=== PATIENT | male | born 1960 | race Caucasian/White ===

== ENCOUNTER 2023-11-18 13:11 | Emergency (ER) | payer BC, SELFPAY ==
[2023-11-18 13:12] VITALS: BP 156/102
[2023-11-18 13:27] LABS: % Basophils 0.4 % (0-2); % Eosinophils 1.9 % (0-6); % Immature Granulocytes 0.3 % (0-0.5); % Lymphocytes 23.8 % (20.5-51.1); % Monocytes 9.7 % (1.7-9.3); % Neutrophils 63.9 % (42.2-75.2); Absolute Basophils 0.1 10^3/uL (0-0.2); Absolute Eosinophils 0.2 10^3/uL (0-0.7); Absolute Lymphocytes 2.8 10^3/uL (1.2-3.4); Absolute Monocytes 1.1 10^3/uL (0.1-0.6); Absolute Neutrophils 7.4 10^3/uL (1.4-6.5); Hematocrit 44.5 % (39.0-52.0); Hemoglobin 15.2 g/dL (13.0-18.0); Mean Corp Hgb Conc. 34.2 g/dL (33.0-37.0); Mean Corpuscular Hgb 32.3 pg (27.0-31.0); Mean Corpuscular Volume 94.7 fL (80.0-94.0); Mean Platelet Volume 9.3 fL (7.4-10.4); Nucleated Red Blood Cells % 0 % (-); Platelet Count 306 10^3/uL (130-400); Red Cell Dist. Width 13.9 % (11.5-14.5); White Blood Cell Count 11.6 10^3/uL (4.8-10.8)
[2023-11-18 13:44] LABS: ALT (SGPT) 28 U/L (0-50); AST (SGOT) 27 U/L (17-59); Albumin 4.7 g/dl (3.5-5.0); Alkaline Phosphatase 81 U/L (38-126); Blood Urea Nitrogen 15 mg/dl (9-20); Calcium 9.6 mg/dl (8.4-10.2); Carbon Dioxide 26 mmol/L (22-30); Chloride 104 mmol/L (98-107); Glucose 103 mg/dl (70-99); Lipase 271 U/L (23-300); Potassium 4.4 mmol/L (3.5-5.1); Sodium 138 mmol/L (135-145); Total Bilirubin 1.3 mg/dl (0.2-1.3); Total Protein 7.7 g/dl (6.3-8.2); eGFR > 60.00
--- NOTE | 2023-11-18 14:26 | ED.GENMED ---
History of Present Illness
General
Chief Complaint: Abdominal Pain
Source: patient
Exam Limitations: none
Time Seen by Provider: 11/18/23 14:16
History of Present Illness
History of Present Illness:
63-year-old male presents complaining of onset of left lower quadrant pain starting this morning. She is constant sharp in nature without radiation to the flank. No associated urinary symptoms. No fever or vomiting. He has a remote history of
diverticulitis and this feels somewhat similar. No other at this time. He has a history of hypertension hyperlipidemia
Phy Exam
Physical Exam
Physical Exam:
General: Well-appearing male no acute respiratory distress
HEENT: Normocephalic atraumatic neck is supple
Heart: Regular rate and rhythm no murmurs
Lungs: Clear no wheeze or rales
Abdomen: Soft tender to the left lower quadrant no guarding rebound normal bowel sounds nondistended
Extremities: No cyanosis or edema
Skin: Warm no rash
Course
Orders/Labs/Results
Orders:
Orders
11/18/23 13:18
Complete Blood Count/With Diff Urgent
Comprehensive Metabolic Panel Urgent
Lipase Urgent
11/18/23 14:26
CT Abd/pelvis W Iv Cont Urgent
Comment:
Reason For Exam: llq pain
11/18/23 15:14
Ketorolac [Toradol] 15 mg IV NOW STA
Abnormal Lab Results
11/18/23
13:18
WBC 11.6 H 10^3/uL
(4.8-10.8)
MCV 94.7 H fL
(80.0-94.0)
MCH 32.3 H pg
(27.0-31.0)
Absolute Neuts (auto) 7.4 H 10^3/uL
(1.4-6.5)
Absolute Monos (auto) 1.1 H 10^3/uL
(0.1-0.6)
Monocytes % 9.7 H %
(1.7-9.3)
Glucose 103 H mg/dl
(70-99)
11/18/23 13:18
11/18/23 13:18
Vital Signs
Initial and Last Documented VS:
Initial Vital Signs
Temp Pulse Resp BP Pulse Ox
98.4 F 63 16 156/102 99
11/18/23 13:12 11/18/23 13:12 11/18/23 13:12 11/18/23 13:12 11/18/23 13:12
Last Documented Vital Signs
Temp Pulse Resp BP Pulse Ox
98.4 F 63 16 156/102 99
11/18/23 13:12 11/18/23 13:12 11/18/23 13:12 11/18/23 13:12 11/18/23 13:12
MDM/Problems Addressed
Differential Diagnosis Includes:
Left lower abdominal pain. Consider diverticulitis versus abscess versus renal colic versus constipation
Labs reviewed demonstrate slightly elevated white blood cell count 11.6. Will check CT scan with IV contrast. Patient offered medicine for pain however at this point he declined
*Critical Care Note
Total Time (30-74mins, 75-104mins- exclusive of procedures): Not Applicable
Update Note
Update Note:
CT demonstrates acute diverticulitis without complication. He also suggests a mass on the adrenal gland and a cyst on the right kidney. (Of the report of the CAT scan was given to the patient further review and follow-up with family doctor.
Diverticulitis to be treated with Augmentin and clear liquids. Stable for discharge
ED Attending Note
-
Portions of this chart may have been created with voice recognition software.� Occasional wrong word or��sound alike� substitutions may have occurred due to the inherent limitations of voice recognition software.
Discharge Plan
Departure
Patient Disposition: Home (Routine Discharge)
Date of Disposition: 11/18/23
Time of Disposition: 17:50
Patient with high blood pressure during this ER visit?: No
Discharge Problem:
Diverticulitis
Instructions: Diverticulitis (DC)
Prescriptions:
New
amoxicillin-pot clavulanate 875-125 mg tablet
1 tab PO BID Qty: 20 0RF
Referrals:
Chayito Irizarry CRNP [Family Provider] -
Activity Restrictions/Additional Instructions:
Drink plenty clear liquids. Use Augmentin as directed. Please return here if worse otherwise follow-up with your family doctor
Interventions
Interventions:
*Risk Screen - Suicide Last Done: 11/18/23 14:45
*General Assessment Last Done: 11/18/23 13:12
*Neglect/Abuse Screening Last Done: 11/18/23 14:45
ED- Fall Risk Assessment Last Done: 11/18/23 14:45
*ED COVID-19 Vaccine History Last Done: 11/18/23 13:12
LD-Pepbkb-Gjjbdsymat Assessment Last Done: 11/18/23 14:50
Discharge Date and Time
Print Language: MARTINIQUAIS
[2023-11-18 14:45] VITALS: BMI 29.0
[2023-11-18] MEDS: TORADOL 15 MG IV (15:15)
[2023-11-18 18:14] VITALS: BP 148/92
== END 2023-11-18 18:15 | disposition home or self-care (01) ==
LOC: EMR 13:11
PROVIDERS: Emergency Medicine; EMERGENCY PHYSICIAN Emergency Medicine; FAMILY PHYSICIAN Nurse Practitioner
DX: R10.32 Left lower quadrant pain (principal); E78.00 Pure hypercholesterolemia, unspecified; I10 Essential (primary) hypertension; K57.92 Diverticulitis of intestine, part unspecified, without perforation or abscess without bleeding
CPT/HCPCS: 99284; 96374; 74177; 80053; 83690; 85025; Q9967

== ENCOUNTER → 2024-02-01 16:11 | Outpatient (REF) | payer BC, SELFPAY | LOC: RAD 16:11 | PROVIDERS: ATTENDING PHYSICIAN Urology; FAMILY PHYSICIAN Nurse Practitioner | DX: N52.9 Male erectile dysfunction, unspecified (principal); N50.89 Other specified disorders of the male genital organs | CPT/HCPCS: 76870; 93976 ==

== ENCOUNTER 2025-01-06 12:40 | Emergency (ER) | payer OTHER, SELFPAY ==
[2025-01-06] VITALS (10 sets, daily range): BP systolic 98–133; BP diastolic 60–88; BMI 27.3
[2025-01-06 12:57] LABS: Hematocrit 43.5 % (39.0-52.0); Hemoglobin 14.7 g/dL (13.0-18.0); Mean Corp Hgb Conc. 33.8 g/dL (33.0-37.0); Mean Corpuscular Volume 95.2 fL (80.0-94.0); Nucleated Red Blood Cells % 0 % (-); Platelet Count 248 10^3/uL (130-400); Red Cell Dist. Width 14.0 % (11.5-14.5)
[2025-01-06 13:26] LABS: ALT (SGPT) 24 U/L (0-50); AST (SGOT) 27 U/L (17-59); Albumin 4.8 g/dl (3.5-5.0); Alkaline Phosphatase 70 U/L (38-126); Blood Urea Nitrogen 20 mg/dl (9-20); Calcium 9.3 mg/dl (8.4-10.2); Carbon Dioxide 27 mmol/L (22-30); Chloride 105 mmol/L (98-107); Estimated Creatinine Clearance 70 ml/min; Glucose 136 mg/dl (70-99); Potassium 4.2 mmol/L (3.5-5.1); Sodium 139 mmol/L (135-145); Total Protein 7.4 g/dl (6.3-8.2); eGFR > 60.00
[2025-01-06 13:37] LABS: Troponin I < 0.012 ng/ml
[2025-01-06] MEDS: LOW STRENGTH ASPIRIN 324 MG PO (13:44)
[2025-01-06] MEDS: NITROSTAT (SUBLINGUAL) 0.4 MG SL (13:45)
[2025-01-06] MEDS: ZOFRAN 4 MG IV (13:57)
--- NOTE | 2025-01-06 14:09 | ED.GENMED ---
History of Present Illness
<Tabitha Rivero DO - Last Filed: 01/06/25 15:46>
General
Chief Complaint: Chest Pain
Time Seen by Provider: 01/06/25 13:31
<Gideon Dawson PA-C - Last Filed: 01/06/25 17:11>
General
Source: patient and spouse
History of Present Illness
History of Present Illness:
64-year-old male with past medical history of hypertension and hyperlipidemia presenting to the ER with for evaluation of pain between the scapular area, base of the neck and chest discomfort that began earlier this morning upon awakening
around 9 AM, pain got worse while he was moving some boxes up a set of stairs prompting to bring him to the ER for further evaluation. Pain was exacerbated slightly with deep inspiration. There is no other accompanied symptoms including
diaphoresis, shortness of breath, lightheadedness, near syncope, abdominal pain, nausea or vomiting. Denies any history of similar. Patient took 2 tablets of oxycodone thinking symptoms were more muscular in nature but states this did not give him
any relief. He does follow with a color consultant at [facility] and states that last year he had a cardiac Done including stress test and cardiac CTA which were reportedly unremarkable per the . Patient denies any fevers or recent
illnesses. They do note recent travel to [place] but no other travel. Family history was noted for father having open heart surgery in his late 50s and passing away in his mid 80s due to cardiac disease. Patient did note having an
alcoholic beverage last night but states this is not atypical for him
Past History
<Gideon Dawson PA-C - Last Filed: 01/06/25 17:11>
Past History
ED Past Medical History: HTN and Hypercholesterolemia
ED Past Surgical History: Orthopedic
Social History
Tobacco: Non-smoker
Alcohol: Occasional
Drug: None
Personal:
Living: with family
Review of Systems
<Gideon Dawson PA-C - Last Filed: 01/06/25 17:11>
Review of Systems
All Other Systems: ROS reviewed and negative except as documented in HPI and ROS
Phy Exam
<Gideon Dawson PA-C - Last Filed: 01/06/25 17:11>
Physical Exam
Physical Exam:
GENERAL: Alert ,Ill-appearing, somewhat pale
EYE: clear conjunctiva b/l
HEAD: NCAT
NECK: Full range of motion without any pain and no focal areas of tenderness
ENT: o/p clr, mmm.
CARDIAC: Bradycardic rate, normal rhythm
LUNGS: Clear breath sounds bilaterally, no acute respiratory distress, no wheezes/rales/rhonchi
ABDOMEN: Soft, without focal tenderness, no r/g, no cvat, negative Cm sign, no tenderness at McBurney's point
NEUROLOGICAL: Alert and oriented
SKIN: Warm and dry, skin intact.
MUSCULOSKELETAL: No edema, well perfused. Intact and equal pulses upper and lower extremity
PSYCH: Normal and appropriate interaction.
Scores
<Tabitha Rivero DO - Last Filed: 01/06/25 15:46>
Heart Score for Chest Pain Patients
Heart Score for Chest Pain Patients: 4
Heart Score Risk: 20.3% MACE over next 6 weeks
<Gideon Dawson PA-C - Last Filed: 01/06/25 17:11>
Heart Failure Risk
Heart Failure Risk Score: Not Applicable
Heart Score for Chest Pain Patients
STEMI patient?: No
History: Moderately Suspicious
ECG: Nonspecific Repolarization
Age: >45 - <65 years
Risk Factors: 1 or 2 Risk Factors
Troponin: </= Normal Limit
Heart Score for Chest Pain Patients: 4
Heart Score Risk: 20.3% MACE over next 6 weeks
Withdrawal Assessment of Alcohol
Withdrawal Assessment Completed?: Not applicable
Course
<Tabitha Mat, DO - Last Filed: 01/06/25 15:46>
Orders/Labs/Results
Orders:
Orders
01/06/25 12:44
Electrocardiogram (*1) Urgent
Reason for Study: Chest Pain
EKG- Treatment ONCE
01/06/25 12:51
Complete Blood Count/With Diff Urgent
Comprehensive Metabolic Panel Urgent
Troponin I Urgent
01/06/25 13:40
Aspirin Chewable [Low Strength Aspirin] 324 mg PO NOW STA
Nitroglycerin Sublingual [Nitrostat (Sublingual)] 0.4 mg SL NOW STA
01/06/25 13:47
CT Chest/abd/pelvis Angio W/wo Urgent
Comment:
Reason For Exam: chest pain, abnormal EKG
01/06/25 13:55
Ondansetron Injectable [Zofran] 4 mg .ROUTE .STK-MED ONE
01/06/25 13:56
Ondansetron Injectable [Zofran] 4 mg IV NOW STA
01/06/25 14:00
0.9% Sodium Chloride 1000 ml [Nss] 1,000 ml IV BOLUS
Morphine Sulfate 4 mg IV NOW STA
01/06/25 15:21
EKG- Treatment ONCE
01/06/25 15:50
EKG [Electrocardiogram (*1)] Urgent
Reason for Study: Chest Pain
01/06/25 16:02
Troponin I Urgent
Abnormal Lab Results
01/06/25
12:51
WBC 13.8 H 10^3/uL
(4.8-10.8)
RBC 4.57 L 10^6/uL
(4.70-6.10)
MCV 95.2 H fL
(80.0-94.0)
MCH 32.2 H pg
(27.0-31.0)
Abs Immat Gran (auto) 0.1 H 10^3/uL
(0-0.05)
Absolute Neuts (auto) 11.4 H 10^3/uL
(1.4-6.5)
Absolute Monos (auto) 0.9 H 10^3/uL
(0.1-0.6)
Neutrophils % 82.8 H %
(42.2-75.2)
Lymphocytes % 9.1 L %
(20.5-51.1)
Glucose 136 H mg/dl
(70-99)
01/06/25 12:51
01/06/25 12:51
Vital Signs
Initial and Last Documented VS:
Initial Vital Signs
Temp Pulse Resp BP Pulse Ox
98.7 F 61 18 113/65 98
01/06/25 12:41 01/06/25 12:41 01/06/25 12:41 01/06/25 12:41 01/06/25 12:41
Last Documented Vital Signs
Temp Pulse Resp BP Pulse Ox
98.7 F 64 15 133/88 98
01/06/25 12:41 01/06/25 17:00 01/06/25 17:00 01/06/25 17:00 01/06/25 17:00
<Gideon Dawson PA-C - Last Filed: 01/06/25 17:11>
Orders/Labs/Results
Orders:
Orders
01/06/25 12:44
Electrocardiogram (*1) Urgent
Reason for Study: Chest Pain
EKG- Treatment ONCE
01/06/25 12:51
Complete Blood Count/With Diff Urgent
Comprehensive Metabolic Panel Urgent
Troponin I Urgent
01/06/25 13:40
Aspirin Chewable [Low Strength Aspirin] 324 mg PO NOW STA
Nitroglycerin Sublingual [Nitrostat (Sublingual)] 0.4 mg SL NOW STA
01/06/25 13:47
CT Chest/abd/pelvis Angio W/wo Urgent
Comment:
Reason For Exam: chest pain, abnormal EKG
01/06/25 13:55
Ondansetron Injectable [Zofran] 4 mg .ROUTE .STK-MED ONE
01/06/25 13:56
Ondansetron Injectable [Zofran] 4 mg IV NOW STA
01/06/25 14:00
0.9% Sodium Chloride 1000 ml [Nss] 1,000 ml IV BOLUS
Morphine Sulfate 4 mg IV NOW STA
01/06/25 15:21
EKG- Treatment ONCE
01/06/25 15:50
EKG [Electrocardiogram (*1)] Urgent
Reason for Study: Chest Pain
01/06/25 16:02
Troponin I Urgent
Abnormal Lab Results
01/06/25
12:51
WBC 13.8 H 10^3/uL
(4.8-10.8)
RBC 4.57 L 10^6/uL
(4.70-6.10)
MCV 95.2 H fL
(80.0-94.0)
MCH 32.2 H pg
(27.0-31.0)
Abs Immat Gran (auto) 0.1 H 10^3/uL
(0-0.05)
Absolute Neuts (auto) 11.4 H 10^3/uL
(1.4-6.5)
Absolute Monos (auto) 0.9 H 10^3/uL
(0.1-0.6)
Neutrophils % 82.8 H %
(42.2-75.2)
Lymphocytes % 9.1 L %
(20.5-51.1)
Glucose 136 H mg/dl
(70-99)
01/06/25 12:51
01/06/25 12:51
Vital Signs
Initial and Last Documented VS:
Initial Vital Signs
Temp Pulse Resp BP Pulse Ox
98.7 F 61 18 113/65 98
01/06/25 12:41 01/06/25 12:41 01/06/25 12:41 01/06/25 12:41 01/06/25 12:41
Last Documented Vital Signs
Temp Pulse Resp BP Pulse Ox
98.7 F 64 15 133/88 98
01/06/25 12:41 01/06/25 17:00 01/06/25 17:00 01/06/25 17:00 01/06/25 17:00
<Gideon Dawson PA-C - Last Filed: 01/06/25 17:11>
MDM/Problems Addressed
Differential Diagnosis Includes:
ACS/angina
dissection
aneurysm
muscular back/neck pain
PE
No symptoms to suggest infectious etiology
MDM/Problems Addressed:
64-year-old male presenting to the ER for evaluation of upper back/neck pain and chest pain which began this morning prior to arrival, seemingly worse now. EKG done in triage did show some slight abnormalities V2, V3 and V6, question early repull
versus ischemic changes. Patient did note some slightly worse symptoms at time of my arrival so a repeat EKG was done and this is unchanged from triage. I did notify cardiology given patient's presentation/symptoms and the EKG findings however
they felt this was more likely early repull/normal EKG but did recommend repeating troponins. Patient did have an episode of bradycardia following my exam down to 38 bpm, this was prior to any medications being given. We did treat with
aspirin/nitroglycerin for symptomatic relief. Patient was brought directly to CT for dissection rule out. Disposition pending
Chronic conditions affecting care: HTN
<Tabitha Rivero DO - Last Filed: 01/06/25 15:46>
*Pulse Oximetry
SaO2: 98
Oxygen Mode of Delivery: Room air
<Gideon Dawson PA-C - Last Filed: 01/06/25 17:11>
*Radiology
Radiology exam reviewed: radiology read reviewed
*Pulse Oximetry
Patient hypoxic: no
*EKG
Heart Rate: 45
Rate: bradycardiac
Rhythm: sinus
[place]: normal axis
Ischemia: ST elevation (V2,V3, ? early repolarization)
*Fiber Picker Interpretation
Rate: bradycardiac
Heart Rate: 43
Rhythm: sinus
*Critical Care Note
Total Time (30-74mins, 75-104mins- exclusive of procedures): Not Applicable
<Gideon Dawson PA-C - Last Filed: 01/06/25 17:11>
Patient Management
Escalation/DeEscalation of care consider admission/obs:
On multiple reevaluations patient states he continues to feel well and significantly better than when he arrived to the emergency department. His CT scan is without any acute findings. I did discuss the incidental finding of the right chest wall
venous collaterals with vascular surgery who states this is likely incidental and not related to patient's current symptoms and that he did not need to follow-up with vascular surgery for this. Repeat EKG unchanged from initial, repeat troponin
negative. Patient will follow-up with his color consultant as an outpatient. Provided with printout of his EKGs from here as well as labs and CT imaging. Aware of return precautions to the ER. Stable for discharge home.
ED Attending Note
<Tabitha Rivero DO - Last Filed: 01/06/25 15:46>
ED Attending Note
Patient seen and examined by attending physician: Yes
I performed the substantive portion of visit, reviewed & personally made and approve the management plan that is documented in note by myself or LUIGI.: Yes
I performed a history and physical exam of patient and discussed management with resident, I reviewed resident's note and agree with documented findings and plan of care.: Yes
ED Attending Note:
64-year-old male without significant past medical history presenting to the emergency department for chest discomfort. Patient reports this morning he was lifting heavy boxes and started to have pain in his upper back. Pain has since traveled to
the front of his chest. No prior cardiac history, however does have some family history of cardiac disease. Denies difficulty breathing. Denies any direct injury to the chest. Vital signs on arrival normal.
On exam, patient is in no acute distress, however appears uncomfortable secondary to his symptoms. EKG obtained immediately upon arrival, with some mild ST elevation to precordial leads, however no STEMI criteria. Given diffuse nature, possible
component of pericarditis. EKG sent to cardiology on-call, without present concern. Patient is now bradycardic, of unclear etiology. Also with episode of vomiting. Otherwise lungs are clear to auscultation, heart is regular. No signs of lower
extremity edema. No obvious murmur. Patient's symptom presentation is concerning for acute coronary syndrome. So we will continue with monitoring, repeat EKGs, repeat troponin. However given location of pain and patient's discomfort, aortic
catastrophe is also consideration. Lower suspicion due to normal blood pressure. Plan for CT chest imaging.
03:40 -CT without evidence of dissection. 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 In discussion with vascular, no acute treatment at this time, without suspicion for etiology of symptoms. Patient notes
that he is feeling better. Will plan for repeat troponin and EKG
-
Portions of this chart may have been created with voice recognition software.� Occasional wrong word or��sound alike� substitutions may have occurred due to the inherent limitations of voice recognition software.
Discharge Plan
Departure
Patient Disposition: Home (Routine Discharge)
Date of Disposition: 01/06/25
Time of Disposition: 16:59
Patient with high blood pressure during this ER visit?: No
Discharge Problem:
Chest pain, Neck pain
Instructions: Chest Pain NON-[facility] Attendant Follow Up
Prescriptions:
New
baclofen 10 mg tablet
10 mg PO BID PRN (Reason: muscle spasm) Qty: 10 0RF
No Action
amoxicillin-pot clavulanate 875-125 mg tablet
1 tab PO BID Qty: 20 0RF
Referrals:
Chayito Irizarry CRNP [Family Provider, Family Practice]
Interventions
Interventions:
*Risk Screen - Suicide Last Done: 01/06/25 12:41
*General Assessment Last Done: 01/06/25 13:15
*Neglect/Abuse Screening Last Done: 01/06/25 13:17
*ED- Fall Risk Assessment Last Done: 01/06/25 13:15
*ED COVID-19 Vaccine History Last Done: 01/06/25 13:15
*Nursing Disposition Last Done: 01/06/25 17:06
ED- Cardiac Assessment Last Done: 01/06/25 13:16
Discharge Date and Time
Print Language: YAKUT
[2025-01-06] MEDS: NSS 1000 IV (14:27)
[2025-01-06] MEDS: MORPHINE SULFATE 4 MG IV (14:27)
[2025-01-06 16:41] LABS: Troponin I < 0.012 ng/ml
== END 2025-01-06 17:40 | disposition home or self-care (01) ==
LOC: EMR 12:40
PROVIDERS: Emergency Medicine; Physician Assistant Medical; EMERGENCY PHYSICIAN Student in an Organized Health Care Education/Training Program; FAMILY PHYSICIAN Nurse Practitioner
DX: R07.89 Other chest pain (principal); M54.2 Cervicalgia; I10 Essential (primary) hypertension; E78.00 Pure hypercholesterolemia, unspecified
CPT/HCPCS: 99284; 96374; 96375; 96361; 71275; 74174; 80053; 84484; 85025; 93005; Q9967